=== PATIENT | male | born 2005 | race Two or more races ===

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

== ENCOUNTER 2025-06-16 21:14 | Emergency (ER) | payer SELFPAY ==
[2025-06-16] MEDS ORDERED: Sodium Chloride 0.9% 10 ML Syringe FLUSH PRN (21:35)
[2025-06-16 21:57] LABS: BASOPHILS ABSOLUTE AUTO 0.1 K/mm3 (0.0-0.3); BASOPHILS PERCENT AUTO 0.4 % (0.0-1.0); EOSINOPHILS ABSOLUTE AUTO 0.5 K/mm3 (0.0-0.7); EOSINOPHILS PERCENT AUTO 3.1 % (0.0-5.0); IMMATURE GRAN ABSOLUTE AUTO 0.07 K/mm3 (0.00-0.05); IMMATURE GRAN PERCENT AUTO 0.5 % (0.0-0.4); LYMPHOCYTES ABSOLUTE AUTO 2.6 K/mm3 (2.0-8.8); LYMPHOCYTES PERCENT AUTO 17.4 % (50.0-65.0); MEAN PLATELET VOLUME 11.9 fl (9.4-12.4); MONOCYTES ABSOLUTE AUTO 1.4 K/mm3 (0.1-1.4); MONOCYTES PERCENT AUTO 9.2 % (2.0-10.0); NEUTROPHILS ABSOLUTE AUTO 10.4 K/mm3 (1.5-8.5); NEUTROPHILS PERCENT AUTO 69.4 % (35.0-45.0); NRBC ABSOLUTE 0.00 (0.00-0.03); NRBC PERCENT 0.0 % (0.0-0.2); PLATELET COUNT,PLT 201 K/mm3 (150-400); RED BLOOD CELL COUNT 4.82 M/mm3 (4.52-5.90); WHITE BLOOD CELL COUNT,WBC 14.93 K/mm3 (4.5-13.5)
[2025-06-16] MEDS: Ketorolac 30 MG/ML SDV IVPUSH ONE (22:24)
[2025-06-16 22:42] LABS: A/G RATIO 1.4 (1-2); ALANINE AMINOTRANSFERASE,ALT 44.0 U/L (16-63); ASPARTATE AMNIOTRANSFERASE,AST 48.0 U/L (15-37); BILIRUBIN TOTAL 0.5 mg/dL (0.2-1.0); BLOOD UREA NITROGEN,BUN 11.0 mg/dL (7-18); CARBON DIOXIDE,CO2 29.0 mEq/L (21-32); CHLORIDE,CL 104.0 mEq/L (98-107); CREATININE 0.9 mg/dL (0.7-1.3); EST CRCL DRUG DOSING (CG) 114.84 mL/min; ESTIMATED GFR 126.0 mL/min (>60); GLUCOSE RANDOM 101.0 mg/dL (70-99); POTASSIUM,K 3.4 mEq/L (3.5-5.1); PROTEIN TOTAL,TP 7.8 g/dl (6.4-8.2); SODIUM,NA 140.0 mEq/L (136-145)
[2025-06-16 22:48] LABS: TROPONIN I HIGH SENSITIVITY 376.0 pg/mL (<=76)
[2025-06-16] MEDS: Heparin Sodium 5,000 Units/ML Vial IVPUSH ONE (23:58)
[2025-06-16] MEDS: Heparin Sodium/D5W 250 ML IV SCH (23:58)
== END 2025-06-17 00:54 ==
LOC: JD.ED 21:14
DX: I21.4 Non-ST elevation (NSTEMI) myocardial infarction (principal)
CPT/HCPCS: 36415; 71045; 80053; 83880; 84484; 85025; 93005; 96361; 96365; 96375; 99285; A9270; J1644; J1885; J7030; 93010